=== PATIENT | male | born 1965 | race Caucasian/White ===

== ENCOUNTER 2023-05-10 10:13 | Day surgery (SDC) | payer BC, SELFPAY ==
[2023-05-10] VITALS (11 sets, daily range): BP systolic 123–161; BP diastolic 86–100; PULSE 68–86; RESP 14–22; TEMP 36–36.9; O2SAT 91–98; BMI 30.4
--- NOTE | 2023-05-10 10:24 | CRLHL7_ITS ---
For Patients: As a result of the Century Cures Act, medical imaging exams and procedure reports are released immediately into your electronic medical record. You may view this report before your referring provider. If you have questions, please contact your health care provider. INDICATION: throat swelling TECHNIQUE: CT soft tissue of the neck was acquired with IV contrast. COMPARISON: None. FINDINGS: Skull base: Unremarkable. Pharynx/Larynx/Trachea: Hypodensity centered within and filling the right epiglottic vallecula, measuring 2.2 x 1.5 x 1.8 cm. There is abutment of the epiglottis and right aryepiglottic fold. Salivary glands: Unremarkable. Thyroid gland: Small bilateral thyroid nodules measuring up to 1.2 cm. Lymph nodes: No enlarged lymph node by size criteria. Vessels: Unremarkable for age. Bones: Unremarkable for age. Misc: Moderate-sized mucous retention cyst within the left maxillary sinus. Lung apices: Unremarkable. IMPRESSION: Hypodensity centered within and filling the right epiglottic vallecula, measuring 2.2 x 1.5 x 1.8 cm. Finding may represent loculated fluid or cystic lesion. Recommend ENT consult and direct visualization. Please note that all CT scans at this facility use dose modulation, iterative reconstruction, and/or weight-based dosing when appropriate to reduce radiation dose to as low as reasonably achievable. Dictated by Doc Greer MD @ 05/10/2023 11:34:37 AM (Electronically Signed)
--- NOTE | 2023-05-10 10:27 | ED_ITS ---
HPI - General Adult General Chief complaint: Sore Throat Stated complaint: Throat tightening Time Seen by Provider: 05/10/23 10:17 History of Present Illness HPI narrative: Patient is a 57 year white male who has had a recent upper respiratory infection, over the last couple weeks he has had a couple episodes of choking and gagging at night where he felt like he could get breath. This happened Monday night. He comes today concerned about this. He had his gallbladder out in the past when he was intubated he had some type of nodule on his throat. He was concerned that might have gotten worse. He has recovered fully from his upper respiratory infection. He has no history of coronary disease, shortness of breath. Has not seen an ENT doctor recently. Related Data Home Medications Medication Instructions Recorded Confirmed No Known Home Medications 05/10/23 05/10/23 Allergies Allergy/AdvReac Type Severity Reaction Status Date / Time No Known Drug Allergies Allergy Verified 05/10/23 11:36 Review of Systems Status of ROS: Reports: 6 or more systems reviewed and unremarkable except as noted in History and below Narrative: Patient does not have a sore throat now Exam Narrative: Exam Narrative: Objective: Patient's vital signs show slightly elevated blood pressure, afebrile Alert orient x3 normal phonation No trismus Neck without tenderness or findings and Mouth exam shows no swelling of the throat her tonsil area. Heart is rate and rhythm regular without murmur Lungs are clear Abdomen is benign Extremities are no edema Neurologic is nonfocal. Const: Vital Signs, click to edit/add: Vital Signs - 24 hr 05/10/23 10:17 Temperature 96.8 F L Pulse Rate [Pulse Oximeter] 79 Respiratory Rate 18 Blood Pressure [Ri ght Upper Arm] 143/89 H Pulse Oximetry 98 Oxygen Delivery Me thod Room Air Course Vital Signs Vital signs: Initial Vital Signs Temperature 96.8 F L 05/10/23 10:17 Temperature Source Temporal Artery Scan 05/10/23 10:17 Pulse Rate 79 05/10/23 10:17 Respiratory Rate 18 05/10/23 10:17 Blood Pressure 143/89 H 05/10/23 10:17 Blood Pressure Mean 107 H 05/10/23 10:17 Blood Pressure Position Sitting 05/10/23 10:17 Pulse Oximetry 98 05/10/23 10:17 Oxygen Delivery Method Room Air 05/10/23 10:17 Vital Signs Temperature 96.8 F L 05/10/23 10:17 Pulse Rate 79 05/10/23 10:17 Respiratory Rate 18 05/10/23 10:17 Blood Pressure 143/89 H 05/10/23 10:17 Pulse Oximetry 98 05/10/23 10:17 Oxygen Delivery Method Room Air 05/10/23 10:17 Temperature 96.8 F L 05/10/23 10:17 Pulse Rate 79 05/10/23 10:17 Respiratory Rate 18 05/10/23 10:17 Blood Pressure 143/89 H 05/10/23 10:17 Pulse Oximetry 98 05/10/23 10:17 Oxygen Delivery Method Room Air 05/10/23 10:17 Medications Administered Medications: Generic Name Dose Route Start Last Admin Trade Name Freq PRN Reason Stop Dose Admin Sodium Chloride 500 mls @ 500 mls/hr 05/10/23 12:12 05/10/23 12:22 0.9 % Sodium Chloride 500 Ml IV 05/10/23 13:11 500 mls/hr .Q1H ONE Administration Discontinued Medications Generic Name Dose Route Start Last Admin Trade Name Freq PRN Reason Stop Dose Admin Sodium Chloride 500 mls @ 500 mls/hr 05/10/23 10:24 05/10/23 12:19 0.9 % Sodium Chloride 500 Ml IV 05/10/23 11:23 500 mls/hr .Q1H ONE Administration Medical Decision Making MDM Narrative Medical decision making narrative: [age] year white male with a 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 This was in the setting of an upper respiratory infection. I think certainly we should check his neck and I think a CT scan of his neck and then follow-up with ENT would be appropriate, will also check laboratory studies. Disposition pending findings I will have him follow-up with Dr. Villar in if his neck CT looks reasonable. Addendum 11:22 a.m.: The patient has reassuring lab studies. He remains hemodynamically stable. Patient has CT scan done of his neck was IV contrast. He has a saline lock in. I discussed with Dr. Lopez in who kindly will see him in the clinic right now and do an upper airway assessment, check for vocal cor ds, airway etc.. Patient the I walked over personally to the clinic as Dr. Lopez and has his equipment there. He will come back to the ER for disposition after completion of his upper study. Addendum 12:13 p.m.: The patient has cystic structures right vallecular. Dr. Lopez and feels should be removed given his difficulty breathing at night with recumbency. Patient is cleared for surgery. He last ate at 5:30 a.m. this morning. Physical exam done, he is on no medications at home. Has no allergies to medications. Lab Data Labs: Lab Results 05/10/23 Range/Units 10:45 WBC 6.30 (4.50-11.00) K/uL RBC 5.29 (4.30-5.90) m/uL Hgb 15.8 (13.5-17.5) gm/dL Hct 47.4 (37.0-53.0) % MCV 90 (80-100) fL MCH 30 (26-34) pg MCHC 33 (32-36) gm/dL RDW Coeff of Mitali 12.6 (11.5-15.5) % Plt Count 337 (140-440) K/uL Neut % (Auto) 58.4 (42.0-72.0) % Lymph % (Auto) 29.0 (20-44) % Baldwin % (Auto) 6.5 (0.0-11.0) % Eos % (Auto) 5.1 (0.0-7.0) % Baso % (Auto) 0.8 (0.0-3.0) % Neut # (Auto) 3.68 (1.7-7.0) K/uL Lymph # (Auto) 1.83 (0.90-2.90) K/uL Baldwin # (Auto) 0.40 (0.00-0.90) K/UL Eos # (Auto) 0.32 (0.00-0.50) K/uL Baso # (Auto) 0.05 (0.00-0.30) K/uL Abs Immat Gran (auto) 0.01 (0.00-0.30) K/uL Imm/Tot Granulo (auto) 0.2 % Sodium 141 (135-149) mmol/L Potassium 4.1 (3.6-5.1) mmol/L Chloride 106 (96-114) mmol/L Carbon Dioxide 27 (20-32) mmol/L Anion Gap 8 (7-15) mEq/L BUN 24 (7-30) mg/dL Creatinine 1.3 (0.5-1.5) mg/dL Estimated Creat Clear 59.92 Estimated GFR 64 ml/min Glucose 99 (60-115) mg/dL Calcium 9.2 (8.4-10.6) mg/dL C-Reactive Protein 1.0 (0.5-1.0) mg/dL Discharge Plan Discharge Clinical Impression: Sensation of swollen throat Patient Disposition: Home, Self-Care Condition: Stable Additional Instructions: Cyst in the throat will be removed by a Dr. Lopez in the or today Prescriptions: No Action No Known Home Medications Follow Up/Referrals: Anthony Anderson MD [Primary Care Provider] - Stand Alone Forms: [employer] Information Digital Info Instructions
--- OUTSIDE RECORDS SUMMARY | 2023-05-10 10:42 | XMS_ITS | Clinical Summary ---
Author Name Unknown Organization [facility] Address [place], [place] [address] Care Team Providers Care Catalyst Plant Supervisor Name Role Phone Anthony Anderson MD Primary Care Provider Allergies No known active allergies Medications Medication Sig Dispensed Refills Start Date End Date Status fluticasone (50 mcg per actuation) nasal solution (FLONASE)Indications: Other seasonal allergic rhinitis INHALE 1-2 PUFFS IN EACH NOSTRIL DAILY 48 g 12 03/10/2015 Active tadalafil (CIALIS) 10 mg tabletIndications:Oth er male erectile dysfunction Take 1 tablet by mouth once daily if needed for Other (Specify). Take 30 minutes before sexual activity. 8 tablet 8 10/17/2017 Active sildenafil citrate (VIAGRA) 50 mg tabletIndications:Ere ctile dysfunction, unspecified erectile dysfunction type Take 1 tablet by mouth once daily if needed for Erectile Dysfunction. Take 30min to 4 hours before sexual activity. Max 100mg/24hr 8 tablet 8 10/17/2017 Active Active Problems Problem Noted Date Diagnosed Date Hyperlipidemia 05/24/2017 Erectile dysfunction 05/29/2015 Family history of malignant neoplasm of gastrointestinal tract 02/21/2014 Overview: Colonoscopy 02/2014 normal repeat in 5 years Elevated BP 03/08/2013 Overweight 03/08/2013 Allergic rhinitis, cause unspecified Resolved Problems Problem Noted Date Diagnosed Date Resolved Date Erectile dysfunction 03/08/2013 016 Encounters Date Type Department Care Team Description 05/10/2023 Nurse Triage [facility] [address] [place] [address] Anthony Anderson MD Difficulty Breathing (Throat closing shut) 05/10/[address] [facility] [address] [place] [address] Anthony Anderson MD Cough from Last 3 Months Immunizations Name Administration Dates Next Due COVID-19 vaccine ([employer] 30mcg/0.3mL) P F, MDV 08/20/2020,07/31/2020 Influenza, IIV3 (Age >=3 years) 03/08/2013 Influenza, IIV4 03/10/2015 Td (Age >=7 Years) 11/06/1995 Tdap 03/08/2013 Family History Medical History Relation Name Comments Cancer-colon Father at 47 Cancer-breast Mother Cancer-prostate Neg. 1 Heart Disease Neg. 2 Diabetes Neg. 3 Anesthesia Problem Neg. 4 Hypertension Sister Relation Name Status Comments Father (Age 47) Colon CA Mother (Age 76) breast CA Neg. 1 Neg. 2 Neg. 3 Neg. 4 Sister Social History Tobacco Use Types Packs/Day Years Used Date Smoking Tobacco: Never Smokeless Tobacco: Never Tobacco Cessation:Counseling Given: Yes Alcohol Use Standard Drinks/Week Comments Yes 0 (1 standard drink = 0.6 oz pur e alcohol) socially PHQ-2 Answer Date Recorded PHQ-2 Score 0 06/16/2018 Sex and Gender Information Value Date Recorded Sex Assigned at Not on file Gender Identity Not on file Sexual Orientation Not on file Obstetrics History Last Filed Vital Signs Vital Sign Reading Time Taken Comments Blood Pressure 122/82 06/01/2018 4:32 PM FORMULATION TECHNICIAN Pulse 66 06/01/2018 4:08 PM FORMULATION TECHNICIAN Temperature 36.2 ??C (97.2 ??F) 06/01/2018 4:08 PM CS T Respiratory Rate - - Oxygen Saturation 100% 06/01/2018 4:08 PM FORMULATION TECHNICIAN Inhaled Oxygen Concentration - - Weight 92.5 kg (204 lb) 06/01/2018 4:08 PM FORMULATION TECHNICIAN Height 169 cm (5' 6.54) 06/01/2018 4:08 PM FORMULATION TECHNICIAN Body Mass Index 32.4 06/01/2018 4:08 PM FORMULATION TECHNICIAN Plan of Treatment Upcoming Encounters Date Type Department Care Team (Late st Contact Info) Description 05/18/2023 4:10 PM FORMULATION TECHNICIAN Office Visit [facility] [address] [place] [address] Anthony Anderson MD [address] [place] [address] Health Maintenance Due Date Last Done Comments HIV for age 15-65 12/31/1979 Zoster (shingles) series for age 50+ (1 of 2) 2014 Colonoscopy through age 75 08/30/2017 08/31/2007 BMI (ht and wt on same day) for age 18+ 06/01/2019 06/01/2018, 05/28/2018, 05/24/2017, Additional history exists Depression screening for age 12+ 06/01/2019 06/01/2018, 05/24/2017, 05/27/2015 Lipids for age 45-75 05/30/2022 05/30/2017, 03/20/2015, 03/13/2013, Additional history exists COVID-19 vaccine series ( season) 2022 08/20/2020, 07/31/2020 Influenza for age 50-64 12/16/2022 03/10/2015, 03/08 Tetanus booster 03/08/2023 03/08/2013, 04/2010, 11/06/1995 Tdap Completed 03/08/2013 Hepatitis C screening for age 18-79 Completed 03/20/2015 Pneumococcal series for age 6-64 Aged Out No longer eligible based on patient's age to complete this topic Care Teams Catalyst Plant Supervisor Relationship Specialty Start Date End Date Anthony Anderson MD [address] [place] [address] [facility] - General 03/20/09
[2023-05-10 11:05] LABS: Basophils Absolute Auto 0.05 K/uL (0.00-0.30); Basophils Percent Auto 0.8 % (0.0-3.0); Eosinophils Absolute Auto 0.32 K/uL (0.00-0.50); Eosinophils Percent Auto 5.1 % (0.0-7.0); Hematocrit 47.4 % (37.0-53.0); Hemoglobin* 15.8 gm/dL (13.5-17.5); Immature Granulocytes Abs Auto 0.01 K/uL (0.00-0.30); Immature Granulocytes Pct Auto 0.2 %; Lymphocytes Absolute Auto 1.83 K/uL (0.90-2.90); Mean Corpuscular HGB Conc 33 gm/dL (32-36); Mean Corpuscular Hemoglobin 30 pg (26-34); Mean Corpuscular Volume 90 fL (80-100); Monocytes Percent Auto 6.5 % (0.0-11.0); Neutrophils Absolute Auto 3.68 K/uL (1.7-7.0); Neutrophils Percent Auto 58.4 % (42.0-72.0); Platelet Count* 337 K/uL (140-440); RDW Coefficient of Variation % 12.6 % (11.5-15.5); Red Blood Count 5.29 m/uL (4.30-5.90)
[2023-05-10 11:07] LABS: Slide Review Reflex No
[2023-05-10 11:09] LABS: Chloride* 106 mmol/L (96-114); Sodium* 141 mmol/L (135-149)
[2023-05-10 11:10] LABS: Potassium* 4.1 mmol/L (3.6-5.1)
[2023-05-10 11:12] LABS: Creatinine* 1.3 mg/dL (0.5-1.5); Est. Creatinine Clearance* 59.92; Estimated Glomerular Filt Rate 64 ml/min
[2023-05-10 11:13] LABS: Anion Gap 8 mEq/L (7-15); Blood Urea Nitrogen* 24 mg/dL (7-30); Carbon Dioxide* 27 mmol/L (20-32); Glucose* 99 mg/dL (60-115)
[2023-05-10 11:14] LABS: Calcium* 9.2 mg/dL (8.4-10.6)
[2023-05-10] MEDS: 0.9 % SODIUM CHLORIDE 500 ML 500 ML IV ×2 (12:19→12:22)
[2023-05-10] MEDS: LACTATED RINGERS 1000 ML 1,000 ML 100 ML IV (13:20)
[2023-05-10] MEDS: SODIUM CHLORIDE 0.9 % (FLUSH) 10 ML SYRINGE IVF (13:27)
--- OUTSIDE RECORDS SUMMARY | 2023-05-10 13:29 | XMS_ITS | Clinical Summary ---
Author Name Unknown Organization [facility] Address [place], [place] [address] Care Team Providers Care Barrel Drainer Name Role Phone Anthony Anderson MD Primary [...] Department Care Team Description 05/10/2023 Nurse Triage [facility] [address] [place] [address] Anthony Anderson MD Difficulty Breathing (Throat closing shut) 05/10/2023 Nurse Triage [facility] [address] [place] [address] Anthony Anderson MD Cough from Last 3 Months Immunizations Name Administration Dates Next Due COVID-19 vaccine ([employer] 30mcg/0.3mL) P F, MDV 08/20/2020,07/31/2020 Influenza, IIV3 [...] Comments Blood Pressure 122/82 06/01/2018 4:32 PM FIRE PILOT Pulse 66 06/01/2018 4:08 PM FIRE PILOT Temperature 36.2 ??C (97.2 ??F) 06/01/2018 4:08 PM CS T Respiratory Rate - - Oxygen Saturation 100% 06/01/2018 4:08 PM FIRE PILOT Inhaled Oxygen Concentration - - Weight 92.5 kg (204 lb) 06/01/2018 4:08 PM FIRE PILOT Height 169 cm (5' 6.54) 06/01/2018 4:08 PM FIRE PILOT Body Mass Index 32.4 06/01/2018 4:08 PM FIRE PILOT Plan of Treatment Upcoming Encounters Date Type Department Care Team (Late st Contact Info) Description 05/18/2023 4:10 PM FIRE PILOT Office Visit [facility] [address] [place] [address] Anthony Anderson MD [address] [place] [address] Health Maintenance Due Date Last Done Comments [...] age to complete this topic Care Teams Barrel Drainer Relationship Specialty Start Date End Date Anthony Anderson MD [address] [place] [address] [facility] - General 03/20/09
--- NOTE | 2023-05-10 13:47 | W.ANESCHARGE ---
Anesthesia Charges Start Date/Time Anesthesia Start Date: 05/10/23 Anesthesia Start Time: 14:01 Stop Date/Time Anesthesia Stop Date: 05/10/23 Anesthesia Stop Time: 14:42 Summary Emergency: MDA
[2023-05-10] MEDS: COCAINE HCL 4 % 4 ML SOLUTION NOSTRIL-B (14:22)
--- NOTE | 2023-05-10 14:26 | P.ANES_ITS ---
Anesthesia Charges Start Date/Time Anesthesia Start Date: 05/10/23 Anesthesia Start Time: 14:01 Stop Date/Time Anesthesia Stop Date: 05/10/23 Anesthesia Stop Time: 14:42 Summary Emergency: HOME STAGING SPECIALIST
[2023-05-10] MEDS: fentaNYL 100 MCG/2 ML inj 50 MCG IVP (14:57)
--- NOTE | 2023-05-16 08:30 | W.PM.ENTPROC ---
Procedure Note Date of procedure: 05/16/23 Procedure: Preoperative diagnosis right laryngeal cyst Postoperative diagnosis same pathology pending Procedure direct laryngoscopy and biopsy of right laryngeal mass with decompression of cyst Under general trach anesthesia patient was prepped and draped usual fashion. A dental guard was placed on the upper teeth. The Dedo scope was then passed in the mass visualized in the right vallecular. It was unroofed with a cup forceps several large pieces of the upper mucosa were removed resulting in immediate release of approximately 4 mL of fluid that was yellowish colored. There was no surrounding erythema to suggest infection. Appearance was consistent with a mucous retention cyst. Bleeding was controlled with a cocaine pledget. The patient was extubated the operating room taken recovery in satisfactory condition. Blood loss was less than 10 mL. Surgeon: Dheeraj Katz MD
== END 2023-05-10 15:45 | disposition home or self-care (01) ==
LOC: ED 12:30 → OR 13:10
PROVIDERS: Emergency Provider Family Medicine; PCP Family Medicine; Visit Provider Otolaryngology
PROC: 0CJS8ZZ Inspection of Larynx, Via Natural or Artificial Opening Endoscopic (ICD-10-PCS; CPT 31535; principal; 2023-05-10 15:00)
DX: J38.7 Other diseases of larynx (principal); J02.9 Acute pharyngitis, unspecified
CPT/HCPCS: 31535; 00170; 36415; 70491; 80048; 85025; 86140; 88305; 99140; 99284; A9270; J0330; J1100; J2405; J2704; J3010; J7030; J7120; Q9967

== ENCOUNTER 2023-06-06 12:15 | Emergency (ER) | payer BC, SELFPAY ==
[2023-06-06] VITALS (40 sets, daily range): BP systolic 139–166; BP diastolic 89–106; PULSE 75–94; RESP 18; TEMP 36.6–37.6; O2SAT 87–98; BMI 31.3
--- NOTE | 2023-06-06 13:02 | ED_ITS ---
HPI - General Adult General Chief complaint: Abdominal Pain Stated complaint: Abdominal pain Time Seen by Provider: 06/06/23 13:02 History of Present Illness HPI narrative: Pt c/o 01/24 abdominal pain that started this morning. Pt states it feels like I'm getting punched in the stomach and has rebound tenderness. Hx gallbladder removal. 57-year-old man presenting to the emergency department with complaint of intense abdominal pain. Says it feels like when his gallbladder was acting up. He is years status post cholecystectomy which he believes was acalculus. Does have a history of nephrolithiasis with retrieval. He is now status post cholecystectomy and did have bilateral inguinal herniorrhaphy. 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 Recalls yesterday evening with feeling a little ordered well, upset stomach somehow. An intense pressure ?feels like I am getting punched in the stomach?. He has passed gas recently. Belching normally. Is nauseated but has not vomited. No fever. Urinated a little before arrival here; this seemed normal. He was noted to have trouble standing straight up. Later conversation spouse reveals have generally his bowels are rather loose and he admits that the loose stool he had today was typical. Related Data Previous Rx's ?Medication ?Instructions ?Recorded hydrocodone 5 mg-acetaminophen 325 1 - 2 tab PO Q4-6H PRN pain #6 tabs 06/06/23 mg tablet hydrocodone 5 mg-acetaminophen 325 1 - 2 tab PO Q6H PRN Pain #20 tabs 07/13/23 mg tablet ketorolac 10 mg tablet 10 mg PO TID PRN pain 4 days #12 07/13/23 tabs Allergies Allergy/AdvReac Type Severity Reaction Status Date / Time No Known Drug Allergies Allergy Verified 06/06/23 13:59 Review of Systems Status of ROS: Reports: 6 or more systems reviewed and unremarkable except as noted in History and below [facility] Surgical History (Updated 07/21/23 @ 00:01 by Background Daemon) S/P bilateral inguinal hernia repair ?Z98.890 - Other specified postprocedural states (ICD-10) ?Z87.19 - Personal history of other diseases of the digestive system (ICD-10) S/P cholecystectomy ?Z90.49 - Acquired absence of other specified parts of digestive tract (ICD- 10) Social History (Updated 07/11/23 @ 19:24 by Ruchi Sanders MD) Narrative: He works as a pss delivery professional. He does do a fair amount of lifting and active work. Smoking Status: Never smoker Do you use any of these nicotine containing products: None Second hand tobacco smoke exposure: No How often do you have a drink containing alcohol: 2-4 times a month How many standard drinks containing alcohol do you have on a typical day: 1 or 2 AUDIT-C Alcohol total score: 2 Non-prescribed substance use: denies use Exam Narrative: Exam Narrative: Pleasant. Does look to be quite uncomfortable. Cranial nerves 2-12 intact. Generally flushed. Seems to be catching his breath a little bit with breathing subtly. Lungs appear to be clear. Heart in elevated rate and regular rhythm. Abdomen with diminished tibia actually absent bowel sounds. He is diffusely somewhat tender but more so than in the mid abdomen where he begins to guard. Extremities are well perfused without edema. Const: Vital Signs, click to edit/add: Vital Signs - 24 hr 06/06/23 12:37 06/06/23 12:54 06/06/23 13:00 Temperature 99.7 F H Pulse Rate 88 86 Pulse Rate [Pulse Oximeter] 94 Respiratory Rate 18 Blood Pressure Blood Pressure [Ri ght Upper Arm] 142/102 H Pulse Oximetry 97 97 96 Oxygen Delivery Me thod Room Air 06/06/23 13:05 06/06/23 13:10 06/06/23 13:15 Temperature Pulse Rate 86 83 Pulse Rate [Pulse Oximeter] Respiratory Rate Blood Pressure Blood Pressure [Ri ght Upper Arm] Pulse Oximetry 97 95 98 Oxygen Delivery Me thod 06/06/23 13:20 06/06/23 13:24 06/06/23 13:30 Temperature Pulse Rate 81 79 Pulse Rate [Pulse Oximeter] Respiratory Rate Blood Pressure 150/94 H Blood Pressure [Ri ght Upper Arm] Pulse Oximetry 97 96 96 Oxygen Delivery Me thod 06/06/23 13:31 06/06/23 13:32 06/06/23 13:40 Temperature Pulse Rate 82 82 Pulse Rate [Pulse Oximeter] Respiratory Rate Blood Pressure 139/89 Blood Pressure [Ri ght Upper Arm] Pulse Oximetry 96 95 92 Oxygen Delivery Me thod 06/06/23 13:57 06/06/23 14:00 06/06/23 14:01 Temperature Pulse Rate 76 80 80 Pulse Rate [Pulse Oximeter] Respiratory Rate Blood Pressure 162/95 H Blood Pressure [Ri ght Upper Arm] Pulse Oximetry 96 97 96 Oxygen Delivery Me thod 06/06/23 14:10 06/06/23 14:20 06/06/23 14:30 Temperature Pulse Rate 75 Pulse Rate [Pulse Oximeter] Respiratory Rate Blood Pressure Blood Pressure [Ri ght Upper Arm] Pulse Oximetry 87 L 89 94 Oxygen Delivery Me thod 06/06/23 14:31 06/06/23 14:31 06/06/23 14:31 Temperature Pulse Rate 80 80 80 Pulse Rate [Pulse Oximeter] Respiratory Rate Blood Pressure 161/99 H 161/99 H 161/99 H Blood Pressure [Ri ght Upper Arm] Pulse Oximetry 95 95 95 Oxygen Delivery Me thod 06/06/23 14:40 06/06/23 14:45 06/06/23 14:50 Temperature Pulse Rate 79 Pulse Rate [Pulse Oximeter] Respiratory Rate Blood Pressure Blood Pressure [Ri ght Upper Arm] Pulse Oximetry 91 91 92 Oxygen Delivery Me thod 06/06/23 15:00 06/06/23 15:01 06/06/23 15:17 Temperature Pulse Rate 87 82 81 Pulse Rate [Pulse Oximeter] Respiratory Rate Blood Pressure 161/98 H 152/105 H Blood Pressure [Ri ght Upper Arm] Pulse Oximetry 94 96 91 Oxygen Delivery Me thod 06/06/23 15:17 06/06/23 15:18 06/06/23 15:20 Temperature Pulse Rate 81 80 Pulse Rate [Pulse Oximeter] Respiratory Rate Blood Pressure 152/105 H Blood Pressure [Ri ght Upper Arm] Pulse Oximetry 91 96 95 Oxygen Delivery Me thod 06/06/23 15:30 06/06/23 15:32 06/06/23 15:33 Temperature Pulse Rate 81 79 82 Pulse Rate [Pulse Oximeter] Respiratory Rate Blood Pressure 154/105 H Blood Pressure [Ri ght Upper Arm] Pulse Oximetry 92 93 93 Oxygen Delivery Me thod 06/06/23 15:40 06/06/23 15:45 06/06/23 15:45 Temperature 97.8 F Pulse Rate 77 Pulse Rate [Pulse Oximeter] Respiratory Rate 18 Blood Pressure Blood Pressure [Ri ght Upper Arm] Pulse Oximetry 94 91 Oxygen Delivery Me thod 06/06/23 15:50 06/06/23 16:27 06/06/23 16:30 Temperature Pulse Rate Pulse Rate [Pulse Oximeter] Respiratory Rate Blood Pressure Blood Pressure [Ri t Upper Arm] Pulse Oximetry 93 95 93 Oxygen Delivery Me thod 06/06/23 16:32 06/06/23 16:40 06/06/23 16:45 Temperature Pulse Rate 81 Pulse Rate [Pulse Oximeter] Respiratory Rate Blood Pressure Blood Pressure [Ri t Upper Arm] Pulse Oximetry 94 94 91 Oxygen Delivery Me thod 06/06/23 17:00 06/06/23 17:01 Temperature Pulse Rate 79 82 Pulse Rate [Pulse Oximeter] Respiratory Rate Blood Pressure 166/106 H Blood Pressure [Ri t Upper Arm] Pulse Oximetry 93 92 Oxygen Delivery Me thod Documenting provider has reviewed patient's vital signs: yes Course Vital Signs Vital signs: Initial Vital Signs Temperature 99.7 F H 06/06/23 12:37 Temperature Source Temporal Artery Scan 06/06/23 12:37 Pulse Rate 94 06/06/23 12:37 Respiratory Rate 18 06/06/23 12:37 Blood Pressure 142/102 H 06/06/23 12:37 Blood Pressure Mean 115 H 06/06/23 12:37 Blood Pressure Position Sitting 06/06/23 12:37 Pulse Oximetry 97 06/06/23 12:37 Oxygen Delivery Method Room Air 06/06/23 12:37 Vital Signs Temperature 99.7 F H 06/06/23 12:37 Pulse Rate 94 06/06/23 12:37 Respiratory Rate 18 06/06/23 12:37 Blood Pressure 142/102 H 06/06/23 12:37 Pulse Oximetry 97 06/06/23 12:37 Oxygen Delivery Method Room Air 06/06/23 12:37 Temperature 97.8 F 06/06/23 15:45 Pulse Rate 82 06/06/23 17:01 Respiratory Rate 18 06/06/23 15:45 Blood Pressure 166/106 H 06/06/23 17:01 Pulse Oximetry 92 06/06/23 17:01 Oxygen Delivery Method Room Air 06/06/23 12:37 Medications Administered Medications: Discontinued Medications Generic Name Dose Route Start Last Admin Trade Name Freq PRN Reason Stop Dose Admin Hydromorphone HCl 1 mg 06/06/23 13:11 06/06/23 13:25 Hydromorphone 0.5 Mg/0.5 Ml Inj IVP 06/06/23 13:12 1 mg ONCE ONE Administration Hyoscyamine 0.25 mg 06/06/23 16:07 06/06/23 16:27 Hyoscyamine Sulfate 0.125 Mg Tab SUBLINGUAL 06/06/23 16:08 0.25 mg ONCE ONE Administration Sodium Chloride 1,000 mls @ 1,000 mls/hr 06/06/23 13:11 06/06/23 14:20 0.9 % Sodium Chloride 1000 Ml IV 06/06/23 14:10 Infused .Q1H ONE Infusion Lidocaine HCl 7.5 ml 06/06/23 16:07 06/06/23 16:29 Lidocaine Hcl 4 % Top Soln 50 Ml Bottle PO 06/06/23 16:08 7.5 ml ONCE ONE Administration Lidocaine/Aluminum/Magnesium/Simeth 30 ml 06/06/23 16:07 06/06/23 16:27 Mag Hydrox/Aluminum Hyd/Simeth 30 Ml Oral.Susp PO 06/06/23 16:08 30 ml ONCE ONE Administration Ondansetron HCl 4 mg 06/06/23 13:11 06/06/23 13:25 Ondansetron 2 Mg/Ml Inj IVP 06/06/23 13:12 4 mg ONCE ONE Administration Medical Decision Making MDM Narrative Medical decision making narrative: Differential includes abdominal gas, intestinal colic. Does not appear to be limited to the epigastrium and indigestion related in. Severe irritable bowel flare? He did have a maybe a little looser stool this morning that did not of apparently affect the pain. Would have concern about more significant intra- abdominal process including perforated diverticulum, possible bowel obstruction. Bowel ischemia. I suppose could have a common bile duct stone. I am anticipating imaging though given persistent duration and intense degree of pain IV has already been placed. Will give Dilaudid and normal saline fluids initially. Check labs. Will be receiving IV contrasted abdominal pelvis scan Labs overall reassuring. With normal transaminases would not appear to involve biliary system duct stone of any sort. Improved with Dilaudid and in fact managed to sleep. I did review CT images. Does appear to have some maybe edema by my read in the small bowel but other than large renal cysts generally appears unremarkable. Does not appear to be obstructed. Maybe this represents a mild ileus. Calcifications in the prostate are noted. Postoperative change consistent with cholecystectomy is noted. Did ultimately receive over-read by radiology of imaging. Noting no acute abnormality than some atelectatic changes in the lungs which I would say is co nsistent with the degree of pain he had been having. Pain began to escalate again. Location of pain seemed more toward the epigastrium on reassessment. Did try hyoscyamine and GI cocktail. He noted marked improvement in pain. Perhaps this prodrome yesterday and symptoms continuing today did represent more of a gastritis/enteritis picture. I am impressed though at the degree of pain he is reporting. See patient discharge plan Medical Records Medical records reviewed: Yes I reviewed the patient's medical records Lab Data Lab results reviewed: Yes I reviewed the patient's lab results Labs: Lab Results 06/06/23 06/06/23 06/06/23 Range/Units 13:00 13:12 13:12 WBC 3.47 L (4.50-11.00) K/uL RBC 5.47 (4.30-5.90) m/uL Hgb 16.3 (13.5-17.5) gm/dL Hct 48.4 (37.0-53.0) % MCV 89 (80-100) fL MCH 30 (26-34) pg MCHC 34 (32-36) gm/dL RDW Coeff of Mitali 12.6 (11.5-15.5) % Plt Count 294 (140-440) K/uL Neut % (Auto) 62.5 (42.0-72.0) % Lymph % (Auto) 16.4 L (20-44) % [place] % (Auto) 19.3 H (0.0-11.0) % Eos % (Auto) 0.9 (0.0-7.0) % Baso % (Auto) 0.6 (0.0-3.0) % Neut # (Auto) 2.20 (1.7-7.0) K/uL Lymph # (Auto) 0.60 L (0.90-2.90) K/uL [place] # (Auto) 0.70 (0.00-0.90) K/UL Eos # (Auto) 0.00 (0.00-0.50) K/uL Baso # (Auto) 0.00 (0.00-0.30) K/uL Abs Immat Gran (auto) 0.00 (0.00-0.30) K/uL Imm/Tot Granulo (auto) 0.3 % Sodium 138 (135-149) mmol/L Potassium 4.2 (3.6-5.1) mmol/L Chloride 105 (96-114) mmol/L Carbon Dioxide 24 (20-32) mmol/L Anion Gap 9 (7-15) mEq/L BUN 19 (7-30) mg/dL Creatinine 1.1 (0.5-1.5) mg/dL Estimated Creat Clear 68.44 Estimated GFR 78 ml/min Glucose 111 (60-115) mg/dL Lactate 0.9 (0.5-1.9) mmol/L Calcium 9.4 (8.4-10.6) mg/dL Total Bilirubin 0.8 (0.1-1.5) mg/dL Direct Bilirubin 0.3 (0.0-0.5) mg/dL AST 25 (12-35) U/L ALT 21 (4-50) U/L Alkaline Phosphatase 83 (40-150) U/L C-Reactive Protein 0.7 (0.5-1.0) mg/dL Total Protein 8.6 H (6.0-8.3) g/dL Albumin 4.8 (3.3-5.0) g/dL Urine Color Yellow Cancelled (Yellow) Urine Appearance Clear (Clear) Urine pH (5.0-8.5) Ur Specific [place] (1.000-1.030) Urine Protein (Negative) Urine Glucose (UA) (Negative) Urine Ketones (Negative) Urine Blood (Negative) Urine Nitrite (Negative) Urine Bilirubin (Negative) Urine Urobilinogen (0.2-1.0) Ur Leukocyte Esterase (Negative) Urine RBC (0-2) Urine WBC (0-5) Urine WBC Clumps Ur Squamous Epith Cells (None-Few) Jim Biurate Crystals Calcium Carbonate Cryst Calcium Phosphate Cryst Calcium Oxalate Crystal Cystine Crystals Uric Acid Crystals Triple Phos Crystals Sulfur Crystals Cholesterol Crystals Tyrosine Crystals Hippuric Acid Crystals Amorphous Sediment Other Sediment Urine Bacteria (None) Fatty Casts Hyaline Casts Fine Granular Casts Coarse Granular Casts Waxy Casts RBC Casts WBC Casts Other Casts Urine Starch Urine Mucus Urine Trichomonas Urine Yeast 06/06/23 06/06/23 06/06/23 Range/Units 13:12 13:12 13:12 WBC (4.50-11.00) K/uL RBC (4.30-5.90) m/uL Hgb (13.5-17.5) gm/dL Hct (37.0-53.0) % MCV (80-100) fL MCH (26-34) pg MCHC (32-36) gm/dL RDW Coeff of Mitali (11.5-15.5) % Plt Count (140-440) K/uL Neut % (Auto) (42.0-72.0) % Lymph % (Auto) (20-44) % [place] % (Auto) (0.0-11.0) % Eos % (Auto) (0.0-7.0) % Baso % (Auto) (0.0-3.0) % Neut # (Auto) (1.7-7.0) K/uL Lymph # (Auto) (0.90-2.90) K/uL [place] # (Auto) (0.00-0.90) K/UL Eos # (Auto) (0.00-0.50) K/uL Baso # (Auto) (0.00-0.30) K/uL Abs Immat Gran (auto) (0.00-0.30) K/uL Imm/Tot Granulo (auto) % Sodium (135-149) mmol/L Potassium (3.6-5.1) mmol/L Chloride (96-114) mmol/L Carbon Dioxide (20-32) mmol/L Anion Gap (7-15) mEq/L BUN (7-30) mg/dL Creatinine (0.5-1.5) mg/dL Estimated Creat Clear Estimated GFR ml/min Glucose (60-115) mg/dL Lactate (0.5-1.9) mmol/L Calcium (8.4-10.6) mg/dL Total Bilirubin (0.1-1.5) mg/dL Direct Bilirubin (0.0-0.5) mg/dL AST (12-35) U/L ALT (4-50) U/L Alkaline Phosphatase (40-150) U/L C-Reactive Protein (0.5-1.0) mg/dL Total Protein (6.0-8.3) g/dL Albumin (3.3-5.0) g/dL Urine Color (Yellow) Urine Appearance Cancelled (Clear) Urine pH 7.0 Cancelled (5.0-8.5) Ur Specific [place] 1.015 Cancelled (1.000-1.030) Urine Protein Negative (Negative) Urine Glucose (UA) (Negative) Urine Ketones (Negative) Urine Blood (Negative) Urine Nitrite (Negative) Urine Bilirubin (Negative) Urine Urobilinogen (0.2-1.0) Ur Leukocyte Esterase (Negative) Urine RBC (0-2) Urine WBC (0-5) Urine WBC Clumps Ur Squamous Epith Cells (None-Few) Jim Biurate Crystals Calcium Carbonate Cryst Calcium Phosphate Cryst Calcium Oxalate Crystal Cystine Crystals Uric Acid Crystals Triple Phos Crystals Sulfur Crystals Cholesterol Crystals Tyrosine Crystals Hippuric Acid Crystals Amorphous Sediment Other Sediment Urine Bacteria (None) Fatty Casts Hyaline Casts Fine Granular Casts Coarse Granular Casts Waxy Casts RBC Casts WBC Casts Other Casts Urine Starch Urine Mucus Urine Trichomonas Urine Yeast 06/06/23 06/06/23 06/06/23 Range/Units 13:12 13:12 13:12 WBC (4.50-11.00) K/uL RBC (4.30-5.90) m/uL Hgb (13.5-17.5) gm/dL Hct (37.0-53.0) % MCV (80-100) fL MCH (26-34) pg MCHC (32-36) gm/dL RDW Coeff of Mitali (11.5-15.5) % Plt Count (140-440) K/uL Neut % (Auto) (42.0-72.0) % Lymph % (Auto) (20-44) % [place] % (Auto) (0.0-11.0) % Eos % (Auto) (0.0-7.0) % Baso % (Auto) (0.0-3.0) % Neut # (Auto) (1.7-7.0) K/uL Lymph # (Auto) (0.90-2.90) K/uL [place] # (Auto) (0.00-0.90) K/UL Eos # (Auto) (0.00-0.50) K/uL Baso # (Auto) (0.00-0.30) K/uL Abs Immat Gran (auto) (0.00-0.30) K/uL Imm/Tot Granulo (auto) % Sodium (135-149) mmol/L Potassium (3.6-5.1) mmol/L Chloride (96-114) mmol/L Carbon Dioxide (20-32) mmol/L Anion Gap (7-15) mEq/L BUN (7-30) mg/dL Creatinine (0.5-1.5) mg/dL Estimated Creat Clear Estimated GFR ml/min Glucose (60-115) mg/dL Lactate (0.5-1.9) mmol/L Calcium (8.4-10.6) mg/dL Total Bilirubin (0.1-1.5) mg/dL Direct Bilirubin (0.0-0.5) mg/dL AST (12-35) U/L ALT (4-50) U/L Alkaline Phosphatase (40-150) U/L C-Reactive Protein (0.5-1.0) mg/dL Total Protein (6.0-8.3) g/dL Albumin (3.3-5.0) g/dL Urine Color (Yellow) Urine Appearance (Clear) Urine pH (5.0-8.5) Ur Specific [place] (1.000-1.030) Urine Protein Cancelled (Negative) Urine Glucose (UA) Negative Cancelled (Negative) Urine Ketones Negative Cancelled (Negative) Urine Blood Trace-intact A (Negative) Urine Nitrite (Negative) Urine Bilirubin (Negative) Urine Urobilinogen (0.2-1.0) Ur Leukocyte Esterase (Negative) Urine RBC (0-2) Urine WBC (0-5) Urine WBC Clumps Ur Squamous Epith Cells (None-Few) [place] Biurate Crystals Calcium Carbonate Cryst Calcium Phosphate Cryst Calcium Oxalate Crystal Cystine Crystals Uric Acid Crystals Triple Phos Crystals Sulfur Crystals Cholesterol Crystals Tyrosine Crystals Hippuric Acid Crystals Amorphous Sediment Other Sediment Urine Bacteria (None) Fatty Casts Hyaline Casts Fine Granular Casts Coarse Granular Casts Waxy Casts RBC Casts WBC Casts Other Casts Urine Starch Urine Mucus Urine Trichomonas Urine Yeast 06/06/23 06/06/23 06/06/23 Range/Units 13:12 13:12 13:12 WBC (4.50-11.00) K/uL RBC (4.30-5.90) m/uL Hgb (13.5-17.5) gm/dL Hct (37.0-53.0) % MCV (80-100) fL MCH (26-34) pg MCHC (32-36) gm/dL RDW Coeff of Mitali (11.5-15.5) % Plt Count (140-440) K/uL Neut % (Auto) (42.0-72.0) % Lymph % (Auto) (20-44) % [place] % (Auto) (0.0-11.0) % Eos % (Auto) (0.0-7.0) % Baso % (Auto) (0.0-3.0) % Neut # (Auto) (1.7-7.0) K/uL Lymph # (Auto) (0.90-2.90) K/uL [place] # (Auto) (0.00-0.90) K/UL Eos # (Auto) (0.00-0.50) K/uL Baso # (Auto) (0.00-0.30) K/uL Abs Immat Gran (auto) (0.00-0.30) K/uL Imm/Tot Granulo (auto) % Sodium (135-149) mmol/L Potassium (3.6-5.1) mmol/L Chloride (96-114) mmol/L Carbon Dioxide (20-32) mmol/L Anion Gap (7-15) mEq/L BUN (7-30) mg/dL Creatinine (0.5-1.5) mg/dL Estimated Creat Clear Estimated GFR ml/min Glucose (60-115) mg/dL Lactate (0.5-1.9) mmol/L Calcium (8.4-10.6) mg/dL Total Bilirubin (0.1-1.5) mg/dL Direct Bilirubin (0.0-0.5) mg/dL AST (12-35) U/L ALT (4-50) U/L Alkaline Phosphatase (40-150) U/L C-Reactive Protein (0.5-1.0) mg/dL Total Protein (6.0-8.3) g/dL Albumin (3.3-5.0) g/dL Urine Color (Yellow) Urine Appearance (Clear) Urine pH (5.0-8.5) Ur Specific [place] (1.000-1.030) Urine Protein (Negative) Urine Glucose (UA) (Negative) Urine Ketones (Negative) Urine Blood Cancelled (Negative) Urine Nitrite Negative Cancelled (Negative) Urine Bilirubin Negative Cancelled (Negative) Urine Urobilinogen 0.2 (0.2-1.0) Ur Leukocyte Esterase (Negative) Urine RBC (0-2) Urine WBC (0-5) Urine WBC Clumps Ur Squamous Epith Cells (None-Few) [place] Biurate Crystals Calcium Carbonate Cryst Calcium Phosphate Cryst Calcium Oxalate Crystal Cystine Crystals Uric Acid Crystals Triple Phos Crystals Sulfur Crystals Cholesterol Crystals Tyrosine Crystals Hippuric Acid Crystals Amorphous Sediment Other Sediment Urine Bacteria (None) Fatty Casts Hyaline Casts Fine Granular Casts Coarse Granular Casts Waxy Casts RBC Casts WBC Casts Other Casts Urine Starch Urine Mucus Urine Trichomonas Urine Yeast 06/06/23 06/06/23 06/06/23 Range/Units 13:12 13:12 13:12 WBC (4.50-11.00) K/uL RBC (4.30-5.90) m/uL Hgb (13.5-17.5) gm/dL Hct (37.0-53.0) % MCV (80-100) fL MCH (26-34) pg MCHC (32-36) gm/dL RDW Coeff of Mitali (11.5-15.5) % Plt Count (140-440) K/uL Neut % (Auto) (42.0-72.0) % Lymph % (Auto) (20-44) % [place] % (Auto) (0.0-11.0) % Eos % (Auto) (0.0-7.0) % Baso % (Auto) (0.0-3.0) % Neut # (Auto) (1.7-7.0) K/uL Lymph # (Auto) (0.90-2.90) K/uL [place] # (Auto) (0.00-0.90) K/UL Eos # (Auto) (0.00-0.50) K/uL Baso # (Auto) (0.00-0.30) K/uL Abs Immat Gran (auto) (0.00-0.30) K/uL Imm/Tot Granulo (auto) % Sodium (135-149) mmol/L Potassium (3.6-5.1) mmol/L Chloride (96-114) mmol/L Carbon Dioxide (20-32) mmol/L Anion Gap (7-15) mEq/L BUN (7-30) mg/dL Creatinine (0.5-1.5) mg/dL Estimated Creat Clear Estimated GFR ml/min Glucose (60-115) mg/dL Lactate (0.5-1.9) mmol/L Calcium (8.4-10.6) mg/dL Total Bilirubin (0.1-1.5) mg/dL Direct Bilirubin (0.0-0.5) mg/dL AST (12-35) U/L ALT (4-50) U/L Alkaline Phosphatase (40-150) U/L C-Reactive Protein (0.5-1.0) mg/dL Total Protein (6.0-8.3) g/dL Albumin (3.3-5.0) g/dL Urine Color (Yellow) Urine Appearance (Clear) Urine pH (5.0-8.5) Ur Specific [place] (1.000-1.030) Urine Protein (Negative) Urine Glucose (UA) (Negative) Urine Ketones (Negative) Urine Blood (Negative) Urine Nitrite (Negative) Urine Bilirubin (Negative) Urine Urobilinogen Cancelled (0.2-1.0) Ur Leukocyte Esterase Negative Cancelled (Negative) Urine RBC 0-2 Cancelled (0-2) Urine WBC 0-2 (0-5) Urine WBC Clumps Ur Squamous Epith Cells (None-Few) [place] Biurate Crystals Calcium Carbonate Cryst Calcium Phosphate Cryst Calcium Oxalate Crystal Cystine Crystals Uric Acid Crystals Triple Phos Crystals Sulfur Crystals Cholesterol Crystals Tyrosine Crystals Hippuric Acid Crystals Amorphous Sediment Other Sediment Urine Bacteria (None) Fatty Casts Hyaline Casts Fine Granular Casts Coarse Granular Casts Waxy Casts RBC Casts WBC Casts Other Casts Urine Starch Urine Mucus Urine Trichomonas Urine Yeast 06/06/23 06/06/23 06/06/23 Range/Units 13:12 13:12 13:12 WBC (4.50-11.00) K/uL RBC (4.30-5.90) m/uL Hgb (13.5-17.5) gm/dL Hct (37.0-53.0) % MCV (80-100) fL MCH (26-34) pg MCHC (32-36) gm/dL RDW Coeff of Mitali (11.5-15.5) % Plt Count (140-440) K/uL Neut % (Auto) (42.0-72.0) % Lymph % (Auto) (20-44) % [place] % (Auto) (0.0-11.0) % Eos % (Auto) (0.0-7.0) % Baso % (Auto) (0.0-3.0) % Neut # (Auto) (1.7-7.0) K/uL Lymph # (Auto) (0.90-2.90) K/uL [place] # (Auto) (0.00-0.90) K/UL Eos # (Auto) (0.00-0.50) K/uL Baso # (Auto) (0.00-0.30) K/uL Abs Immat Gran (auto) (0.00-0.30) K/uL Imm/Tot Granulo (auto) % Sodium (135-149) mmol/L Potassium (3.6-5.1) mmol/L Chloride (96-114) mmol/L Carbon Dioxide (20-32) mmol/L Anion Gap (7-15) mEq/L BUN (7-30) mg/dL Creatinine (0.5-1.5) mg/dL Estimated Creat Clear Estimated GFR ml/min Glucose (60-115) mg/dL Lactate (0.5-1.9) mmol/L Calcium (8.4-10.6) mg/dL Total Bilirubin (0.1-1.5) mg/dL Direct Bilirubin (0.0-0.5) mg/dL AST (12-35) U/L ALT (4-50) U/L Alkaline Phosphatase (40-150) U/L C-Reactive Protein (0.5-1.0) mg/dL Total Protein (6.0-8.3) g/dL Albumin (3.3-5.0) g/dL Urine Color (Yellow) Urine Appearance (Clear) Urine pH (5.0-8.5) Ur Specific [place] (1.000-1.030) Urine Protein (Negative) Urine Glucose (UA) (Negative) Urine Ketones (Negative) Urine Blood (Negative) Urine Nitrite (Negative) Urine Bilirubin (Negative) Urine Urobilinogen (0.2-1.0) Ur Leukocyte Esterase (Negative) Urine RBC (0-2) Urine WBC Cancelled (0-5) Urine WBC Clumps Cancelled Ur Squamous Epith Cells None Cancelled (None-Few) Jim Biurate Crystals Cancelled Calcium Carbonate Cryst Cancelled Calcium Phosphate Cryst Cancelled Calcium Oxalate Crystal Cancelled Cystine Crystals Cancelled Uric Acid Crystals Cancelled Triple Phos Crystals Cancelled Sulfur Crystals Cancelled Cholesterol Crystals Cancelled Tyrosine Crystals Cancelled Hippuric Acid Crystals Cancelled Amorphous Sediment Cancelled Other Sediment Cancelled Urine Bacteria None Cancelled (None) Fatty Casts Cancelled Hyaline Casts Cancelled Fine Granular Casts Cancelled Coarse Granular Casts Cancelled Waxy Casts Cancelled RBC Casts Cancelled WBC Casts Cancelled Other Casts Cancelled Urine Starch Cancelled Urine Mucus Cancelled Urine Trichomonas Cancelled Urine Yeast Cancelled Discharge Plan Discharge Clinical Impression: Abdominal pain Patient Disposition: Home w/ Parent or Adult Condition: Improved Additional Instructions: Focus on hydration. Slow advance of diet over the next 36 hours. Diluted juices, soup broths, Jell-O, popsicles. Crackers, rice, toast. Can try liquid antacid/anti-gas for flare of pain in addition to your prescribed medications. For intense pain not improved in an hour, intractable vomiting, associated fever, please return. Prescriptions: New hydrocodone-acetaminophen 5-325 mg tablet 1 - 2 tab PO Q4-6H PRN (Reason: pain) Qty: 6 0RF No Action hydrocodone-acetaminophen 5-325 mg Tablet 1 - 2 tab PO Q6H PRN (Reason: Pain) Qty: 20 0RF ketorolac 10 mg tablet 10 mg PO TID PRN (Reason: pain) 4 Days Qty: 12 0RF Follow Up/Referrals: Anthony Anderson MD [Primary Care Provider] - Stand Alone Forms: Only [employer] Store Info Instructions
--- NOTE | 2023-06-06 13:11 | CT_ITS ---
Final Report Patient: TENISHA Funes [facility] Facility:?[facility] Patient ID:?[id number] Site Patient ID:?[id number]. Site :?[id number] Study:?CT Abdomen/Pelvis W/ 98CC ISOVUE 370-06/06/2023 1:58:12 PM Ordering Physician:RICKEY Final Report: INDICATION: Abdominal pain COMPARISON: None TECHNIQUE: CT examination of the abdomen and pelvis was performed following the uneventful intravenous administration of 100 cc of Omnipaque 350. Thin section axial images were obtained from the lung bases through the pubic symphysis. Oral contrast was not administered. Please note that all CT scans at this facility use dose modulation, iterative reconstruction, and/or weight-based dosing when appropriate to reduce radiation dose to as low as reasonably achievable. FINDINGS: LUNG BASES: Bibasilar ground-glass opacities are noted which are probably inflammatory.There is also basilar atelectasis. Heart size is normal at the lung bases. LIVER/BILIARY SYSTEM:The liver is normal in size and configuration. There is no focal mass and there is no intra- or extra hepatic biliary ductal dilatation.Hepatic steatosis. Surgically absent gallbladder. ADRENALS: Normal KIDNEYS, URETERS and BLADDER:Low-density renal lesions bilaterally likely cysts. Probable midpole left renal stone, nonobstructive. The bladder appears normal SPLEEN:Normal appearance. PANCREAS: Appears normal. RETROPERITONEUM and MESENTERY: There is no mass, adenopathy or aortic aneurysm. GASTROINTESTINAL SYSTEM: There is no evidence of diverticulitis, colitis, mechanical obstruction, or appendicitis. The small bowel as visualized appears normal.Scattered diverticulosis PELVIS: No mass, adenopathy or free fluid.Mildly prominent prostate OSSEOUS STRUCTURES and ABDOMINAL WALL: There is an age-appropriate appearance of the osseous structures.No significant abdominal wall defect. OTHER: No free fluid or free air. IMPRESSION: 1. No specific visible cause for abdominal pain. 2. Ground-glass opacities at the lung bases probably inflammatory. Mild basilar atelectasis. 3. Other incidental and nonacute appearing findings as above Please note that all CT scans at this facility use dose modulation, iterative reconstruction, and/or weight-based dosing when appropriate to reduce radiation dose to as low as reasonably achievable. Dictated by Robson Varner MD @ 06/06/2023 3:03:30 PM (Electronic Signature)
--- OUTSIDE RECORDS SUMMARY | 2023-06-06 13:14 | XMS_ITS | Clinical Summary ---
Author Name Unknown Organization [facility] Address [place], [place] [address] Care Team Providers Care Identification Printing Machine Setter Name Role Phone Anthony Anderson MD Primary [...] Date Type Department Care Team Description 05/10/2023 Lab Requisition [facility] [phone] Dheeraj Katz MD 05/10/2023 Nurse Triage [facility] [address] [place] [address] Anthony Anderson MD Difficulty Breathing (Throat closing shut) 05/10/2023 Nurse Triage [facility] [address] [place] [address] Anthony Anderson MD Cough from Last 3 Months Immunizations Name Administration Dates Next Due COVID-19 vaccine (Extole 30mcg/0.3mL) P F, MDV 08/20/2020,07/31/2020 Influenza, IIV3 [...] Comments Blood Pressure 122/82 06/01/2018 4:32 PM COMMERCIAL FOOD INSTRUCTOR Pulse 66 06/01/2018 4:08 PM COMMERCIAL FOOD INSTRUCTOR Temperature 36.2 ??C (97.2 ??F) 06/01/2018 4:08 PM CS T Respiratory Rate - - Oxygen Saturation 100% 06/01/2018 4:08 PM COMMERCIAL FOOD INSTRUCTOR Inhaled Oxygen Concentration - - Weight 92.5 kg (204 lb) 06/01/2018 4:08 PM COMMERCIAL FOOD INSTRUCTOR Height 169 cm (5' 6.54) 06/01/2018 4:08 PM COMMERCIAL FOOD INSTRUCTOR Body Mass Index 32.4 06/01/2018 4:08 PM COMMERCIAL FOOD INSTRUCTOR Plan of Treatment Health Maintenance Due Date Last Done Comments [...] 03/13/2013, Additional history exists COVID-19 vaccine series (2022- season) 2022 08/20/2020, 07/31/2020 Influenza for age 50-64 12/16/2022 03/10/2015, 03/08 Tetanus booster 03/08/2023 03/08/2013, 1204/2010, 11/06/1995 Tdap Completed 03/08/2013 Hepatitis C screening for age 18-79 Completed 03/20/2015 Pneumococcal series for age 6-64 Aged Out No longer eligible based on patient's age to complete this topic Procedures Procedure Name Priority Date/Time Associated Diagnosis Comments LAB TRACKING EVENT Routine 05/10/2023 2: 30 PM COMMERCIAL FOOD INSTRUCTOR PATH TISSUE EXAM Routine 05/10/2023 2:30 PM COMMERCIAL FOOD INSTRUCTOR from Last 3 Months Results * LAB TRACKING EVENT (05/10/2023 2:30 PM COMMERCIAL FOOD INSTRUCTOR) Other (Other) Client Collect / Unknown 05/10/2023 2:30 PM COMMERCIAL FOOD INSTRUCTOR 05/10/2023 9:28 PM COMMERCIAL FOOD INSTRUCTOR Dheeraj Katz MD LAB BILL ONLY [facility] [address] [place] [address], * PATH TISSUE EXAM (05/10/2023 2:30 PM COMMERCIAL FOOD INSTRUCTOR) Case Report Pathology Report ?Case: [id number] ? Authorizing Provider: ??Dheeraj Katz, ??Collected: ? 05/10/2023 1430 ? MD ? Ordering Location: ? [facility] ?Received: ?05/11/2023 0905 ? Pathologist: ? Keeley Bhat ? Myrna, MD ? Specimen: ?Laryngeal Biopsy, Right Laryngeal Cyst ? 05/12/2023 8:21 AM COMMERCIAL FOOD INSTRUCTOR [facility] Final Diagnosis LARYNGEAL CYST, RIGHT, EXCISIONAL BIOPSY: 1. Benign squamous mucosa with mild submucosal chronic inflammation 2. Negative for atypia or malignancy in this sample 05/12/2023 8:21 AM [facility] Clinical Information Cyst 05/12/2023 8:21 AM COMMERCIAL FOOD INSTRUCTOR [facility] Gross Description A) Received in formalin, labeled with the patient's name and R laryngeal cyst, are 3 pereyra tissue fragments ranging from 0.3-0.6 cm. The specimen is entirely submitted in ??1 cassette. TLF 05/11/2023 05/12/2023 8:21 AM [facility] Microscopic Description The final diagnosis is based on microscopic examination of appropriate sections of all specimens. 05/12/2023 8:21 AM COMMERCIAL FOOD INSTRUCTOR [facility] Additional Information Interpreted at [facility] - [address] [facility] [address] [place] [address] 05/12/2023 8:21 AM [facility] Other (Laryngeal Biopsy) 05/10/2023 2:30 PM COMMERCIAL FOOD INSTRUCTOR 05/11/2023 9:05 AM COMMERCIAL FOOD INSTRUCTOR Dheeraj Katz MD PATHOLOGY/CYT [facility] [address] [place] [id number], from Last 3 Months Care Teams Identification Printing Machine Setter Relationship Specialty Start Date End Date Anthony Anderson MD [address] [place] [address] PCP - General 03/20/09
[2023-06-06 13:18] LABS: Lactate* 0.9 mmol/L (0.5-1.9)
[2023-06-06 13:22] LABS: Basophils Percent Auto 0.6 % (0.0-3.0); Eosinophils Percent Auto 0.9 % (0.0-7.0); Hematocrit 48.4 % (37.0-53.0); Hemoglobin* 16.3 gm/dL (13.5-17.5); Immature Granulocytes Pct Auto 0.3 %; Lymphocytes Percent Auto 16.4 % (20-44); Mean Corpuscular HGB Conc 34 gm/dL (32-36); Mean Corpuscular Hemoglobin 30 pg (26-34); Mean Corpuscular Volume 89 fL (80-100); Monocytes Percent Auto 19.3 % (0.0-11.0); Neutrophils Percent Auto 62.5 % (42.0-72.0); Platelet Count* 294 K/uL (140-440); RDW Coefficient of Variation % 12.6 % (11.5-15.5); Red Blood Count 5.47 m/uL (4.30-5.90); White Blood Count* 3.47 K/uL (4.50-11.00)
[2023-06-06 13:25] LABS: Slide Review Reflex No
[2023-06-06] MEDS: HYDROmorphone 0.5 mg/0.5 ml inj 1 MG IVP (13:25)
[2023-06-06] MEDS: ONDANSETRON 2 MG/ML inj 4 MG IVP (13:25)
[2023-06-06] MEDS: 0.9 % SODIUM CHLORIDE 1000 ml 1,000 ML IV (13:25)
[2023-06-06 13:41] LABS: Albumin* 4.8 g/dL (3.3-5.0); Chloride* 105 mmol/L (96-114); Sodium* 138 mmol/L (135-149)
[2023-06-06 13:42] LABS: Potassium* 4.2 mmol/L (3.6-5.1)
[2023-06-06 13:43] LABS: Bilirubin Direct* 0.3 mg/dL (0.0-0.5); Bilirubin Total* 0.8 mg/dL (0.1-1.5); Total Protein* 8.6 g/dL (6.0-8.3)
[2023-06-06 13:44] LABS: Alanine Aminotransferase* 21 U/L (4-50); Alkaline Phosphatase* 83 U/L (40-150); Aspartate Amino Transferase* 25 U/L (12-35); Creatinine* 1.1 mg/dL (0.5-1.5); Est. Creatinine Clearance* 68.44; Estimated Glomerular Filt Rate 78 ml/min
[2023-06-06 13:45] LABS: Anion Gap 9 mEq/L (7-15); Blood Urea Nitrogen* 19 mg/dL (7-30); Calcium* 9.4 mg/dL (8.4-10.6); Carbon Dioxide* 24 mmol/L (20-32); Glucose* 111 mg/dL (60-115)
[2023-06-06 13:48] LABS: C Reactive Protein* 0.7 mg/dL (0.5-1.0)
[2023-06-06 15:27] LABS: Appearance Urine Clear (Clear); Bilirubin Urine Negative (Negative); Blood Urine Trace-intact (Negative); Color Urine Yellow (Yellow); Glucose Urine Negative (Negative); Ketones Urine Negative (Negative); Leukocyte Esterase Urine Negative (Negative); Nitrite Urine Negative (Negative); Protein Urine Negative (Negative); Specific Gravity Urine 1.015 (1.000-1.030); Urobilinogen Urine 0.2 (0.2-1.0)
[2023-06-06 15:30] LABS: RBC Urine 0-2 (0-2); WBC Urine 0-2 (0-5)
[2023-06-06] MEDS: MAG HYDROX/ALUMINUM HYD/SIMETH 30 ML ORAL.SUSP PO (16:27)
[2023-06-06] MEDS: HYOSCYAMINE SULFATE 0.125 MG TAB 0.25 MG SUBLINGUAL (16:27)
[2023-06-06] MEDS: lidocaine HCL 4 % TOP SOLN 50 ML BOTTLE 7.5 ML PO (16:29)
== END 2023-06-06 17:40 | disposition home or self-care (01) ==
PROVIDERS: Emergency Provider Family Medicine; PCP Family Medicine
DX: R10.9 Unspecified abdominal pain (principal)
CPT/HCPCS: 36415; 74177; 80048; 80076; 81001; 83605; 85025; 86140; 94761; 96374; 96375; 99284; 99285; A9270; J1170; J2405; J7030; Q9967

== ENCOUNTER 2023-07-12 12:53 | Inpatient (IN) | payer BC, SELFPAY ==
[2023-07-11] VITALS (10 sets, daily range): BP systolic 150–179; BP diastolic 91–101; PULSE 84–91; RESP 16–24; TEMP 36.2–36.3; O2SAT 88–100
[2023-07-11] MEDS: LACTATED RINGERS 1000 ML 1,000 ML 35 ML IV ×2 (19:05→20:30)
--- NOTE | 2023-07-11 19:21 | PM.GSCN ---
History of Present Illness Consult details Date Seen: 07/11/23 Consult date: 07/11/23 Narrative: The patient is a 57-year-old male who was diagnosed with acute appendicitis in clinic today and presents for appendectomy. He states that he has had a history of left-sided abdominal pain since the end of May. He was actually in the emergency department on June 06. He had severe pain at that time. No cause was found on CT scan. He was discharged home for follow-up with his primary care doctor. He followed up with Dr. Anderson on 06/13. He was started on omeprazole at that time. He states that for the last few weeks he has had left-sided pain on and off. On Monday the pain became more severe. He states that it is persistently in the left side of his abdomen and left lower abdomen as well as hypogastrium. He states that the pain has been worse with movement. No nausea, vomiting. No fevers. No change in bowel or urinary symptoms. He has felt short of breath with movement with this pain. When he was evaluated today by Dr. Anderson in clinic, he was found to have right lower quadrant pain with rebound. CT scan showed likely early acute appendicitis. He was then referred to [facility]. [facility] Surgical History (Updated 07/11/23 @ 19:26 by Ruchi Sanders MD) S/P bilateral inguinal hernia repair ?Z98.890 - Other specified postprocedural states (ICD-10) ?Z87.19 - Personal history of other diseases of the digestive system (ICD-10) S/P cholecystectomy ?Z90.49 - Acquired absence of other specified parts of digestive tract (ICD-10) Social History (Updated 07/11/23 @ 19:24 by Ruchi Sanders MD) Narrative: He works as a sales relationship manager. He does do a fair amount of lifting and active work. Smoking Status: Never smoker Do you use any of these nicotine containing products: None Second hand tobacco smoke exposure: No How often do you have a drink containing alcohol: 2-4 times a month How many standard drinks containing alcohol do you have on a typical day: 1 or 2 AUDIT-C Alcohol total score: 2 Non-prescribed substance use: denies use Meds Home Medications and Allergies Allergies Allergy/AdvReac Type Severity Reaction Status Date / Time No Known Drug Allergies Allergy Verified 06/06/23 13:59 Exam Narrative: Exam Narrative: General: No acute distress CV: Regular rate and rhythm Respiratory: Clear bilaterally Abdomen: Scars consistent with surgical history. Abdomen is protuberant. He is mildly tender in the left abdomen. He does have marked tenderness in the right lower quadrant with significant rebound here. Extremities: No edema Psych: Normal affect Neuro: No focal deficits Results Labs Labs: White blood cell count done today at [facility] was 7. Imaging Abdomen CT scan report/results: report reviewed and image reviewed Additional studies: Indication: Right lower quadrant pain Technique: CT abdomen and pelvis with intravenous contrast, 100 milliliters of Omnipaque 350. Please note that all CT scans at this facility use dose modulation, iterative reconstruction, and/or weight-based dosing when appropriate to reduce radiation dose to as low as reasonably achievable. Comparison: None. Findings: 43 millimeters ectasia of the ascending thoracic aorta is noted. There are moderate coronary artery atherosclerotic calcifications. There are a few sub 4 millimeter pulmonary nodules which are highly statistically benign and per Fleischner criteria if the patient is at increased risk for malignancy consider follow-up chest CT in 1 year. The gallbladder is surgically absent. The liver, spleen, adrenal glands and pancreas are normal. 7 centimeter right kidney and 3 centimeter left kidney cysts are identified. There is a 4 millimeter stone within the left kidney. There is no hydronephrosis. Urinary bladder is grossly unremarkable. Prostate is mildly enlarged. The base of the appendix is dilated at 13 millimeters with suggestion of faint surrounding inflammatory stranding. The hollow viscera is otherwise without obstruction, focal bowel wall thickening or adjacent inflammatory stranding. There is no free air, ascites or lymphadenopathy. The abdominal aorta is patent and normal in course and caliber. Mesenteric arteries are patent. Postsurgical changes of bilateral inguinal hernia repair are noted. There is a tiny fat containing umbilical hernia. Bones are age-appropriate. Impression: Dilated appendix base with faint inflammatory stranding is suspicious for early appendicitis. Recommend general surgical evaluation. Progress Note:A&P Assessment and plan (1) Acute appendicitis: Status: Acute Plan The patient is a 57-year-old male with acute appendicitis. We discussed that appendectomy is the preferred treatment for this. This can most often be done laparoscopically. We discussed risks and benefits of the procedure including but not limited to bleeding, need for conversion to open, risk of injury to other structures, need for possible bowel resection, and abscess formation. The patient understands that the risk of abscess is higher if the appendix is perforated. For that reason, we generally keep patient is in the hospital on IV antibiotics until vital signs and white blood cell count had normalized. We also discussed recovery including 2 weeks of lifting restrictions. Regarding his left-sided pain, I discussed with the patient and his that there are no findings on CT scan to explain this. He does have a colonoscopy planned in 6 weeks. I think that this is reasonable. This will allow him sufficient time to heal. While his symptoms may improve after appendectomy, I think that this is less likely. He last ate 8 hours prior. We will plan on surgery this evening. Also, EKG is not available for review, however he does have an H&P from Dr. Anderson who did evaluate his the EKG and clear him for surgery.
[2023-07-11] MEDS: PIPERACILLIN/TAZOBACTAM 3.375 GM INJ IVPB (19:39)
--- NOTE | 2023-07-11 19:51 | W.ANESCHARGE ---
Anesthesia Charges Start Date/Time Anesthesia Start Date: 07/11/23 Anesthesia Start Time: 19:28 Stop Date/Time Anesthesia Stop Date: 07/11/23 Anesthesia Stop Time: 23:07 Summary Emergency: RECORDING ENGINEER
[2023-07-11] MEDS: BUPIVACAINE 0.25% 30 ML INJECTION (20:00)
--- NOTE | 2023-07-11 23:11 | P.GSOP_ITS ---
Operative Note Date of procedure: 07/11/23 Pre-op diagnosis: Acute appendicitis Post-op diagnosis: Acute appendicitis without perforation, possibly acute on chronic appendicitis. Type of Procedure: Laparoscopic converted to open appendectomy. Indications: The patient is a 57-year-old male who presented to clinic with ongoing abdominal pain for the last month. His symptoms were primarily on the left side, however when he was examined today, he was found to have right lower quadrant pain. CT scan showed a dilated appendix with mild inflammation concerning for early acute appendicitis. He was referred to [facility] for further care. I recommended appendectomy to the patient. He agreed to proceed. Procedure Description: After discussing the risks and benefits of the procedure, the patient signed informed consent.? The operative site was marked and the patient was brought to the operating room and placed on the operating table in supine position.? Care was taken to pad the patient's pressure points.?? The patient was then intubated by anesthesia.?? The operative site was then prepped and draped in the usual sterile fashion.? A time-out was then performed. Entrance to the abdomen was gained via Landa technique below the umbilicus. The patient's prior infraumbilical incision was incised. Dissection was taken down with cautery until the fascia was encountered. This was then incised. The peritoneal cavity was entered. The abdomen was then insufflated. There was no peritonitis. A 5 mm trocar was placed in the left upper quadrant as well as the left lower quadrant. These were both done under direct vision. The patient was then placed in Trendelenburg position with the right side up. The small bowel was gently moved out of the way and the appendix was noted to be stuck to the retroperitoneum. There was no purulence. The appendiceal tip was noted. This was grasped and I attempted to pull the appendix into view. This was somewhat difficult as the appendix was densely adherent to the retroperitoneum with likely chronic adhesions. I had difficulty visualizing as the small bowel was encroaching upon the working area. I placed an additional 5 mm port in the right upper quadrant and through this my assistant floor covering printer was able to gently retract the small bowel and mesentery out of the way with a soft jaw grasper. Using a combination of blunt dissection and cautery, I began attempting to dissect the appendix away from the retroperitoneum. It was again very adherent, likely secondary to chronic adhesion or possibly even prior inflammation. There was no purulence or abscess cavity noted here. The mesoappendix was markedly thickened and difficult to grasp. Pulling on the appendiceal tip to provide retraction resulted in tearing of the serosa. The midportion of the appendix also appeared to be stuck to the cecum, however I was able to gently tease this away with blunt dissection. The terminal ileum was directly adjacent to this inflammatory process. At this point the mesoappendix was tethering the appendix to the retroperitoneum and obscuring identification of the appendiceal base. The mesoappendix again was firm and markedly inflamed. Using cautery, I carefully dissected through the mesoappendix. The appendiceal artery was encountered and clipped with a 5 mm clip pulpit operator. I continued my dissection, however it continued to be very difficult as this portion of the appendix remained very adherent to the retroperitoneum and also firm and dilated and difficult to grasp. At this point, given the amount of inflammation towards the base of the appendix, and inability to completely dissect this out laparoscopically, I elect ed to proceed with an open operation. I grasped the appendix with a grasper and the patient was placed flat. Incision was created in the right lower abdomen overlying the appendix. Dissection was taken down to the subcutaneous tissue using cautery. The anterior oblique fascia was incised - eventually the incision was extended to include the edge of the rectus fascia. The external oblique muscle and transversalis was divided and the posterior fascia was then incised. The abdominal cavity was entered. I opened the peritoneum the rest of the way, using my hand to protect the intra-abdominal contents. While doing this a piece of small bowel moved around my hand and and sustained a superficial cautery burn measuring approximately 2 mm. This was oversewn transversely with interrupted 3-0 Vicryl suture in a Lembert fashion in the event of progression of deeper injury. The bowel lumen was not compromised. This was approximately 20 cm proximal to the ileocecal valve. Once the incision was opened an Lino wound retractor was placed in the wound. The small bowel was packed out of the way using a laparotomy sponge. The appendix was then brought into view and the laparoscopic grasper was removed. The appendix was grasped with a Beccaria clamp. The area was palpated. The base of the appendix was inflamed and firm. Using a right angle, I began to dissect the inflamed mesoappendix towards the base of the appendix. This was divided using cautery. There was a firm area of likely chronic inflammation/scarring tethering the cecum and appendix to the retroperitoneum. I was able to divide this and pull the cecum better up into view. Once this was done I was able to identify the base of the appendix. This did appear somewhat thickened. The terminal ileum was directly adjacent to this, therefore a partial cecectomy was not possible. I weighed the options of possible ileocecectomy versus attempting to staple the base of the appendix though it was thickened. I elected to start with stapling across the appendiceal base. A purple load Endo-TATUM stapler was obtained. This was placed across the base of the appendix at its junction with the cecum. This was then divided. The appendix was passed off the field. The staple line was intact. I attempted to invert the staple line, however again given the proximity of the terminal ileum, I was unable to do this. Therefore I oversewed the staple line with interrupted silk sutures. Once this was done, the Lino wound retractor was removed. Clean gloves and instruments were obtained. The fascia was closed in 2 layers with number 1 PDS. Once this was done, I re-insufflated the abdomen to examine the area. Again the staple line appeared intact. Hemostasis was excellent. I elected to place a drain for early detection of possible staple line leak. Because none of the port sites were in an appropriate location for right-sided drain, I made an additional incision superior to the right lower quadrant incision. Through this I passed a 5 mm port. Through this I was able to pass a 15 British Salazar drain. This was positioned in the bed of the appendix. This was then sutured in place. The abdomen was again examined. The small bowel was placed back in the appropriate location. The abdomen was then desufflated after removing the ports. The umbilical port site fascia was closed with 0 Vicryl. The port sites were closed with 4-0 Monocryl suture. The right lower quadrant incision was closed with 3-0 Vicryl dermal and 4-0 Monocryl running subcuticular sutures. Sterile dressings were applied. The patient was then woken and transported to the recovery area in stable condition. ? The patient tolerated the procedure well. Findings: Inflamed appendix and appendiceal mesentery - appearing acute on chronic. No perforation. Anesthesia: GETA Surgeon: Ruchi Sanders MD Estimated blood loss (mL): 15 Specimen: Appendix Condition: stable Disposition: PACU
[2023-07-11] MEDS: HYDROmorphone 0.5 mg/0.5 ml inj IVP (23:32)
[2023-07-12] VITALS (18 sets, daily range): BP systolic 123–180; BP diastolic 80–99; PULSE 77–104; RESP 16–20; TEMP 36.4–37.9; O2SAT 91–96
[2023-07-12] MEDS: LACTATED RINGERS 1000 ML 1,000 ML 125 ML IV ×4 (00:28→23:15)
[2023-07-12] MEDS: PIPERACILLIN/TAZOBACTAM 3.375 GM in 0.9 % SODIUM CHLORIDE Mini-bag 100 ML IVPB ×4 (01:32→20:00)
[2023-07-12] MEDS: HYDROmorphone 0.5 mg/0.5 ml inj IVP ×2 (02:46→05:04)
[2023-07-12 06:18] LABS: White Blood Count* 14.36 K/uL (4.50-11.00)
--- NOTE | 2023-07-12 06:18 | PC.NURSE ---
Shift note: Pt was received from the OR at 0000. Alert and conscious but sleepy and weak on arrival. 1 large right lower quadrant abdominal incision with dressing which appeared clean and dry and 2 LAP site open to air. Pt came with Ringers Lactate infusing at 125ml/hr. Pt was able raise both upper extremities and wiggle to toes of both lower extremities. Pain was rated at 2 on arrival which gradually increased to 6 after 3 hours on arrival. 2x pain medication given as prescribed. Ice pack applied to the incision site, SCD applied and educated on the use of incentive spirometry. TRINI tube located at right abdomen drained about 38ml of bloody discharges. Pt ambulated with A1 to the BR and able to make about 450ml of clear urine since received from OR. Lungs sound clear bilaterally and hypoactive bowel sound. Low grade fever of 99.7 recorded. Order to start clear liquid diet initiated.
[2023-07-12 06:19] LABS: Basophils Percent Auto 0.1 % (0.0-3.0); Hematocrit 41.8 % (37.0-53.0); Hemoglobin* 14.1 gm/dL (13.5-17.5); Immature Granulocytes Pct Auto 0.1 %; Lymphocytes Percent Auto 5.4 % (20-44); Mean Corpuscular HGB Conc 34 gm/dL (32-36); Mean Corpuscular Hemoglobin 30 pg (26-34); Mean Corpuscular Volume 89 fL (80-100); Monocytes Percent Auto 2.8 % (0.0-11.0); Neutrophils Percent Auto 91.6 % (42.0-72.0); Platelet Count* 333 K/uL (140-440); RDW Coefficient of Variation % 12.5 % (11.5-15.5); Red Blood Count 4.72 m/uL (4.30-5.90)
[2023-07-12 06:29] LABS: Slide Review Reflex No
[2023-07-12 06:37] LABS: Chloride* 103 mmol/L (96-114); Potassium* 4.5 mmol/L (3.6-5.1); Sodium* 137 mmol/L (135-149)
[2023-07-12 06:40] LABS: Anion Gap 7 mEq/L (7-15); Carbon Dioxide* 27 mmol/L (20-32); Creatinine* 1.2 mg/dL (0.5-1.5); Est. Creatinine Clearance* 62.73; Estimated Glomerular Filt Rate 70 ml/min
[2023-07-12 06:41] LABS: Blood Urea Nitrogen* 24 mg/dL (7-30); Calcium* 8.9 mg/dL (8.4-10.6); Glucose* 143 mg/dL (60-115)
[2023-07-12] MEDS: HYDROCODONE-ACETAMIN 5-325 MG 1 TAB PO ×4 (06:46→21:35)
--- NOTE | 2023-07-12 12:21 | PM.GSPN ---
Subjective Subjective Date Seen: 07/12/23 Interval history: Qamar is doing better today. His pain is better controlled than it was overnight. He has been up walking this morning. He has not had any nausea. Exam Narrative: Exam Narrative: General: No acute distress CV: Regular rate Respiratory: Breathing nonlabored on room Abdomen: Appropriatel tender for the postop state. Dressings are clean and dry. Drain with serosanguineous output. Const: Vital Signs, click to edit/add: Vital Signs - 24 hr 07/11/23 23:05 07/11/23 23:10 07/11/23 23:15 Temperature 97.1 F L Pulse Rate 84 86 88 Pulse Rate [Right Radial] Respiratory Rate 24 24 18 Blood Pressure 152/91 H 161/100 H 150/94 H Blood Pressure [Le ft Arm] Blood Pressure [Ri ght Radial Artery] Pulse Oximetry 90 96 95 Oxygen Delivery Me thod Nasal Cannula Oxygen Flow Rate 2 Fraction of Inspir ed Oxygen 96 07/11/23 23:20 07/11/23 23:25 07/11/23 23:30 Temperature Pulse Rate 89 87 85 Pulse Rate [Right Radial] Respiratory Rate 20 20 16 Blood Pressure 153/96 H 168/96 H 169/99 H Blood Pressure [Le ft Arm] Blood Pressure [Ri ght Radial Artery] Pulse Oximetry 96 96 88 Oxygen Delivery Me thod Oxygen Flow Rate Fraction of Inspir ed Oxygen 07/11/23 23:35 07/11/23 23:40 07/11/23 23:45 Temperature Pulse Rate 86 91 87 Pulse Rate [Right Radial] Respiratory Rate 18 21 19 Blood Pressure 164/99 H 167/99 H 179/94 H Blood Pressure [Le ft Arm] Blood Pressure [Ri ght Radial Artery] Pulse Oximetry 92 98 100 Oxygen Delivery Me thod Oxygen Flow Rate Fraction of Inspir ed Oxygen 07/11/23 23:50 07/12/23 00:00 07/12/23 00:15 Temperature 97.4 F L 98.4 F 98.8 F Pulse Rate 90 89 87 Pulse Rate [Right Radial] Respiratory Rate 24 18 18 Blood Pressure 177/101 H 154/90 H 145/87 H Blood Pressure [Le ft Arm] Blood Pressure [Ri ght Radial Artery] Pulse Oximetry 97 91 92 Oxygen Delivery Me thod Room Air Room Air Oxygen Flow Rate Fraction of Inspir ed Oxygen 07/12/23 00:17 07/12/23 00:32 07/12/23 00:45 Temperature 98.4 F 99 F 99 F Pulse Rate 88 96 Pulse Rate [Right Radial] 89 Respiratory Rate 18 18 18 Blood Pressure 137/92 H 137/83 Blood Pressure [Le ft Arm] Blood Pressure [Ri ght Radial Artery] 154/90 H Pulse Oximetry 91 93 93 Oxygen Delivery Me thod Room Air Room Air Room Air Oxygen Flow Rate Fraction of Inspir ed Oxygen 07/12/23 01:00 07/12/23 01:34 07/12/23 02:00 Temperature 98.7 F 99.2 F 98.9 F Pulse Rate 92 88 87 Pulse Rate [Right Radial] Respiratory Rate 18 18 18 Blood Pressure 140/85 H 146/89 H 135/85 Blood Pressure [Le ft Arm] Blood Pressure [Ri ght Radial Artery] Pulse Oximetry 94 94 95 Oxygen Delivery Me thod Room Air Room Air Room Air Oxygen Flow Rate Fraction of Inspir ed Oxygen 07/12/23 03:00 07/12/23 04:00 07/12/23 04:00 Temperature 99 F 98.9 F 99.7 F H Pulse Rate 87 87 Pulse Rate [Right Radial] Respiratory Rate 18 18 18 Blood Pressure 131/85 145/86 H Blood Pressure [Le ft Arm] Blood Pressure [Ri ght Radial Artery] Pulse Oximetry 95 95 95 Oxygen Delivery Me thod Room Air Room Air Room Air Oxygen Flow Rate 2 Fraction of Inspir ed Oxygen 96 07/12/23 05:15 07/12/23 06:50 07/12/23 07:37 Temperature 99.7 F H 99.1 F 99.3 F Pulse Rate 87 87 Pulse Rate [Right Radial] 104 H Respiratory Rate 18 18 16 Blood Pressure 134/83 152/94 H Blood Pressure [Le ft Arm] 151/93 H Blood Pressure [Ri ght Radial Artery] Pulse Oximetry 95 95 96 Oxygen Delivery Me thod Room Air Room Air Room Air Oxygen Flow Rate Fraction of Inspir ed Oxygen 07/12/23 07:37 07/12/23 11:14 Temperature 98.3 F Pulse Rate Pulse Rate [Right Radial] 104 H 83 Respiratory Rate 16 20 Blood Pressure Blood Pressure [Le ft Arm] 131/80 Blood Pressure [Ri ght Radial Artery] Pulse Oximetry 96 Oxygen Delivery Me thod Room Air Oxygen Flow Rate Fraction of Inspir ed Oxygen Labs/Imaging Labs Labs: White blood cell count is slightly elevated at 14. Hemoglobin is stable. Electrolytes within normal range Progress Note:A&P Assessment and plan (1) Acute appendicitis: Status: Acute (2) S/P appendectomy: Status: Acute Plan The patient is a 57-year-old male postop day 1 status post laparoscopic converted to open appendectomy for appendicitis. This appeared to be acute on chronic intraoperatively, with significant scarring, requiring conversion to open. -will go slowly with diet advancement. Advance to full liquids today. -continue perioperative antibiotics through today. Will decide on continuation postoperatively depending on course -continue to encourage IS and ambulation. He if he is ambulatory we will hold off on Lovenox. -continue pain medications as they are, however will add Toradol today. -given incision and incisional pain, would recommend keeping patient overnight yet this evening and will reassess tomorrow.
--- NOTE | 2023-07-12 18:58 | PC.NURSE ---
End of Shift: Patient pleasant and cooperative. Patient vitally stable, lungs clear, BS WNL, IV running LR at 125. Patient rates pain 6-3/10, norco 2 tabs given x2 this shift. Patient SBA with IV pole. Patient tolerating full liquid diet and urinating well. Patient abdominal incision and lap sites x4 C/D/I, some laps sites contain old dried blood. TRINI draining x2 with a total of 30ml. Patient has ambulated in the hallway today.
[2023-07-13] MEDS: HYDROCODONE-ACETAMIN 5-325 MG 1 TAB PO ×3 (01:23→10:26)
[2023-07-13] MEDS: PIPERACILLIN/TAZOBACTAM 3.375 GM in 0.9 % SODIUM CHLORIDE Mini-bag 100 ML IVPB ×3 (01:25→13:17)
[2023-07-13 01:36] VITALS: BP 160/90
[2023-07-13 02:22] VITALS: PULSE 65; RESP 16; TEMP 36.8; O2SAT 94
[2023-07-13 06:31] LABS: Basophils Absolute Auto 0.03 K/uL (0.00-0.30); Basophils Percent Auto 0.4 % (0.0-3.0); Eosinophils Absolute Auto 0.17 K/uL (0.00-0.50); Eosinophils Percent Auto 2.1 % (0.0-7.0); Hematocrit 38.5 % (37.0-53.0); Hemoglobin* 12.9 gm/dL (13.5-17.5); Immature Granulocytes Abs Auto 0.01 K/uL (0.00-0.30); Immature Granulocytes Pct Auto 0.1 %; Lymphocytes Absolute Auto 2.16 K/uL (0.90-2.90); Lymphocytes Percent Auto 26.8 % (20-44); Mean Corpuscular HGB Conc 34 gm/dL (32-36); Mean Corpuscular Hemoglobin 30 pg (26-34); Mean Corpuscular Volume 89 fL (80-100); Monocytes Percent Auto 7.1 % (0.0-11.0); Neutrophils Absolute Auto 5.11 K/uL (1.7-7.0); Neutrophils Percent Auto 63.5 % (42.0-72.0); Platelet Count* 333 K/uL (140-440); RDW Coefficient of Variation % 12.9 % (11.5-15.5); Red Blood Count 4.31 m/uL (4.30-5.90); White Blood Count* 8.05 K/uL (4.50-11.00)
[2023-07-13 06:41] LABS: Slide Review Reflex No
--- NOTE | 2023-07-13 06:43 | PC.NURSE ---
End of shift [id number]: A&O pleasant and cooperative. Pt reports 4-5/10 pain in abdomen. See eMAR for interventions. Afebrile. Lap sites dry and intact. TRINI site has scant dry drainage on dressing but intact. TRINI in place and draining. Active bowel sounds in q4 quadrants and pt reports passing gas. Up with SBA to bathroom.
[2023-07-13 06:57] LABS: C Reactive Protein* 3.6 mg/dL (0.5-1.0)
[2023-07-13 08:03] VITALS: BP 171/97; PULSE 64; RESP 17; TEMP 36.4; O2SAT 97
[2023-07-13 11:00] VITALS: BP 151/105; PULSE 70; RESP 16; TEMP 36.9; O2SAT 94
--- NOTE | 2023-07-13 12:13 | PM.GSPN ---
Subjective Subjective Date Seen: 07/13/23 Interval history: Qamar is doing well. His pain is much better. He states he had an episode overnight where he got very hot and sweaty. He did not have a fever at that time. He did not have any increased pain. Has been eating without nausea. Is passing gas. Exam Narrative: Exam Narrative: General: No acute distress CV: Regular rate and rhythm Respiratory: Breathing nonlabored on room air Abdomen: Appropriately tender for the postop state. Incisions are all clean and dry without erythema. Drain output is serous. Const: Vital Signs, click to edit/add: Vital Signs - 24 hr 07/12/23 15:00 07/12/23 15:00 07/12/23 20:06 Temperature 98.6 F 100.2 F H Pulse Rate [Pulse Oximeter] Pulse Rate [Right Radial] 77 77 77 Respiratory Rate 20 20 20 Blood Pressure [Le ft Arm] 123/84 152/93 H Blood Pressure [Ri ght Radial Artery] Pulse Oximetry 94 94 Oxygen Delivery Me thod Room Air Room Air 07/12/23 23:23 07/12/23 23:34 07/13/23 01:36 Temperature 97.6 F Pulse Rate [Pulse Oximeter] 82 Pulse Rate [Right Radial] Respiratory Rate 16 Blood Pressure [Le ft Arm] 180/95 H 166/99 H Blood Pressure [Ri ght Radial Artery] 160/90 H Pulse Oximetry 95 Oxygen Delivery Me thod Room Air 07/13/23 02:22 07/13/23 08:03 07/13/23 11:00 Temperature 98.2 F 97.5 F L 98.4 F Pulse Rate [Pulse Oximeter] 65 64 70 Pulse Rate [Right Radial] Respiratory Rate 16 17 16 Blood Pressure [Le ft Arm] 171/97 H 151/105 H Blood Pressure [Ri ght Radial Artery] Pulse Oximetry 94 97 94 Oxygen Delivery Me thod Room Air Room Air Room Air Labs/Imaging Labs Labs: White blood cell count is normal. CRP mildly elevated at 3.6. Progress Note:A&P Assessment and plan (1) S/P appendectomy: Status: Acute Assessment and Plan: The patient is a 57-year-old male who is now postop day 2 after laparoscopic converted to open appendectomy. He is doing well overall. We will advance his diet this afternoon and if he continues to do well we will likely discharge him home. I would plan to pull his drain prior to discharge. Will have him follow up with primary care provider to further discuss blood pressure as he has been intermittently hypertensive this hospitalization.
--- NOTE | 2023-07-13 13:52 | PM.DS1 ---
DS: Providers Provider Date Seen: 07/13/23 Date of admission: 07/12/23 13:03 Primary care physician: Anthony Anderson MD Admitting Clinician: Ruchi Sanders MD Attending Physician on discharge: Ruchi Sanders MD DS: Diagnosis Discharge Diagnosis (1) S/P appendectomy: Status: Acute DS: Summary Hospital Course Hospital Course: The patient underwent laparoscopic converted to open appendectomy on 07/11/2023. This was for acute appendicitis. He remained in the hospital postoperatively for pain control. He did well and was deemed safe for discharge on postop day 2 up surgical drain that had been placed at the time of surgery was pulled prior to discharge as output was serous. He was afebrile, tolerating regular diet and had been passing flatus. Time Spent with Patient Time attestation: Total time spent providing and/or coordinating discharge services: Exam Const: Vital Signs, click to edit/add: Vital Signs - 24 hr 07/12/23 15:00 07/12/23 15:00 07/12/23 20:06 Temperature 98.6 F 100.2 F H Pulse Rate [Pulse Oximeter] Pulse Rate [Right Radial] 77 77 77 Respiratory Rate 20 20 20 Blood Pressure [Le ft Arm] 123/84 152/93 H Blood Pressure [Ri ght Radial Artery] Pulse Oximetry 94 94 Oxygen Delivery Me thod Room Air Room Air 07/12/23 23:23 07/12/23 23:34 07/13/23 01:36 Temperature 97.6 F Pulse Rate [Pulse Oximeter] 82 Pulse Rate [Right Radial] Respiratory Rate 16 Blood Pressure [Le ft Arm] 180/95 H 166/99 H Blood Pressure [Ri ght Radial Artery] 160/90 H Pulse Oximetry 95 Oxygen Delivery Me thod Room Air 07/13/23 02:22 07/13/23 08:03 07/13/23 11:00 Temperature 98.2 F 97.5 F L 98.4 F Pulse Rate [Pulse Oximeter] 65 64 70 Pulse Rate [Right Radial] Respiratory Rate 16 17 16 Blood Pressure [Le ft Arm] 171/97 H 151/105 H Blood Pressure [Ri ght Radial Artery] Pulse Oximetry 94 97 94 Oxygen Delivery Me thod Room Air Room Air Room Air Documenting provider has reviewed patient's vital signs: yes Common normals: no apparent distress General appearance: cooperative Resp: Common normals: normal respiratory effort Cardio: Common normals: regular rate Rate: regular rate GI: Inspection: incision (No erythema.) DS: Data Data Completed and Pending Labs on day of discharge: Labs from last 24 hours 07/13/23 05:54 WBC 8.05 RBC 4.31 Hgb 12.9 L Hct 38.5 MCV 89 MCH 30 MCHC 34 RDW Coeff of Mitali 12.9 Plt Count 333 Neut % (Auto) 63.5 Lymph % (Auto) 26.8 [place]ah % (Auto) 7.1 Eos % (Auto) 2.1 Baso % (Auto) 0.4 Neut # (Auto) 5.11 Lymph # (Auto) 2.16 [place]ah # (Auto) 0.60 Eos # (Auto) 0.17 Baso # (Auto) 0.03 Abs Immat Gran (auto) 0.01 Imm/Tot Granulo (auto) 0.1 C-Reactive Protein 3.6 H Discharge Plan Discharge Disposition: Home, Self-Care Date of Admission: 07/12/23 13:03 Attending Provider on Discharge: Ruchi Sanders Primary Care Provider: Anthony Anderson Condition: Stable Anticipated Discharge Date/Time: 07/13/23 15:00 Discharge Medications: New hydrocodone-acetaminophen 5-325 mg Tablet 1 - 2 tab PO Q6H PRN (Reason: Pain) Qty: 20 0RF ketorolac 10 mg tablet 10 mg PO TID PRN (Reason: pain) 4 Days Qty: 12 0RF Continued hydrocodone-acetaminophen 5-325 mg tablet 1 - 2 tab PO Q4-6H PRN (Reason: pain) Qty: 6 0RF Discontinued hyoscyamine sulfate 0.125 mg tablet, sublingual 0.25 mg PO QID PRN (Reason: abdominal cramping) Qty: 20 0RF ondansetron 4 mg tablet,disintegrating 4 mg PO Q4-6H PRN (Reason: nausea and vomiting) Qty: 12 0RF Discharge Orders: Discharge Order (Routine); Ordered 07/13/23 Ordered By: Ruchi Sanders Patient Education: Hydrocodone/Acetaminophen (By mouth), Ketorolac (By mouth), General Anesthesia (DC), Laparoscopic Appendectomy (DC), Post-Operative Instructions: Appendectomy Additional Instructions: Wound care: Your sutures are under the skin and will dissolve over time. Leave steri strips (white bandages) over incisions until they fall off (or remove after 7 days). OK to shower tomorrow but avoid bathing, soaking or swimming for 2 weeks. Pat the incisions dry. No need to wash or scrub the area. Apply ice to the area as needed for swelling. It is also OK to use a heating pad if this provides more comfort to you. Pain control: You were prescribed two pain medications. Take Ketorolac first line for pain. Do not take additional Ibuprofen (Advil, Motrin, Naproxen or Alleve) with this. You were also prescribed an opioid medication called hydrocodone. This is the same medication you were prescribed during your ER visit. You may to use to use your original prescription before filling this new one. This medication contains acetaminophen (Tylenol). If you are taking your prescribed pain pills 4 times daily, do not take additional acetaminophen. As your pain improves, you can try taking acetaminophen instead of the prescribed pain pill. Take an [id number] stool softener while you are taking prescribed pain medications to help alleviate constipation. I recommend Senna and/or Colace. Take as directed on package. If you have not had a bowel movement in 3 days, try taking Miralax as directed on the package. All of these are available over the counter. Follow-up Follow up with Dr. Sanders in 2-3 weeks Follow up with Dr. Anderson in 2 weeks to address high blood pressure. Please call if you are experiencing severe pain, nausea, vomiting, difficulty urinating, fever or have not had bowel movement in 4 days after surgery. Activity Level: No strenuous activity Activity Detail: No lifting more than 20 pounds for 4 weeks Discharge Diet: Regular Follow Up Appointments: Anthony Anderson MD [Primary Care Provider] - 07/26/23 11:45 am ([facility] for follow-up.) Ruchi Sanders MD [Staff Physician] - 08/01/23 1:00 pm ([facility] for follow-up.) Forms: [employer] Info Instructions
--- NOTE | 2023-07-13 14:39 | PC.NURSE ---
Patient tolerated regular diet, denies n/v. Pain controlled with [place] per JUN. Ambulated in [place] independently. TRINI drain removed by . IV D/C, cath tip intact. Discharge instructions given verbally and in writing to patient and spouse. All questions answered. Patient understands follow up appointments. D/C'd at 1416 via wheelchair to return home with spouse.
== END 2023-07-13 14:16 | disposition home or self-care (01) | DRG 223 ==
LOC: SS 07-17 16:16 → MEDSURG 07-17 16:16
PROVIDERS: Admitting Provider Surgery; PCP Family Medicine; Visit Provider Surgery
PROC: 0DTJ4ZZ Resection of Appendix, Percutaneous Endoscopic Approach (ICD-10-PCS; CPT 44970; principal; 2023-07-11 19:15)
DX: K35.890 Other acute appendicitis without perforation or gangrene (principal); K91.71 Accidental puncture and laceration of a digestive system organ or structure during a digestive system procedure; K66.0 Peritoneal adhesions (postprocedural) (postinfection); Z53.31 Laparoscopic surgical procedure converted to open procedure
CPT/HCPCS: 44950; 00840; 36415; 80048; 85025; 86140; 88304; 99140; A9270; J0330; J0665; J1100; J1170; J1885; J2371; J2405; J2543; J2704; J3010; J3490; J7120